=== PATIENT | male | born 1995 | race Caucasian/White ===

== ENCOUNTER 2017-09-10 11:16 | Emergency (ER) | payer OTHER ==
[2017-09-10 11:28] VITALS: RESP 16
--- NOTE | 2017-09-10 11:48 | XR ---
EXAMINATION TYPE: XR chest 2V DATE OF EXAM: 09/10/2017 COMPARISON: NONE HISTORY: Chest pain TECHNIQUE: Frontal and lateral views of the chest are obtained. FINDINGS: There is no focal air space opacity. No evidence for pneumothorax. No pleural effusion. The cardiac silhouette size is within normal limits. The osseous structures are grossly intact. IMPRESSION: 1. No acute cardiopulmonary process.
--- NOTE | 2017-09-10 12:22 | ED ---
General Adult HPI - General Chief complaint: Upper Respiratory Infection Stated complaint: flu like symptoms Time Seen by Provider: 09/10/17 12:02 Source: patient, family, RN notes reviewed Mode of arrival: ambulatory Limitations: no limitations - History of Present Illness Initial comments: Patient is a 22-year-old male who presents emergency room today with chief complaint cough congestion and body aches over the last 3 days. Patient states that was worried about possible flu. Patient does admit to a sore throat. Does admit that he's had a lot of rhinorrhea. Patient denies any sputum production with cough. Patient denies any other complaints or symptoms currently. Patient verónica is been using Tylenol ibuprofen at home. Patient denies shortness of breath, chest pain, abdominal pain, nausea or vomiting, numbness or tingling, dysuria or hematuria, constipation or diarrhea, headaches or visual changes, or any other complaints. - Related Data Home Medications Medication Instructions Recorded Confirmed No Known Home Medications [No 09/10/17 09/10/17 Known Home Medications] Allergies Allergy/AdvReac Type Severity Reaction Status Date / Time No Known Allergies Allergy Verified 09/10/17 12:20 Review of Systems ROS Statement: Those systems with pertinent positive or pertinent negative responses have been documented in the HPI. ROS Other: All systems not noted in ROS Statement are negative. Past Medical History Past Medical History: No Reported History History of Any Multi-Drug Resistant Organisms: None Reported Past Surgical History: No Surgical Hx Reported Past Psychological History: No Psychological Hx Reported, ADD/ADHD, Bipolar Smoking Status: Never smoker Past Alcohol Use History: None Reported Past Drug Use History: None Reported General Exam - General Exam Comments Initial Comments: General: The patient is awake and alert, in no distress, and does not appear acutely ill. Eye: Pupils are equal, round and reactive to light, extra-ocular movements are intact. No nystagmus. There is normal conjunctiva bilaterally. No signs of icterus. Ears, nose, mouth and throat: There are moist mucous membranes and no oral lesions. No redness to the posterior pharynx. Uvula midline. Patient swallows without any difficulty. No exudate. Neck: The neck is supple, there is no tenderness or JVD. Cardiovascular: There is a regular rate and rhythm. No murmur, rub or gallop is appreciated. Respiratory: Lungs are clear to auscultation, respirations are non-labored, breath sounds are equal. No wheezes, stridor, rales, or rhonchi. Musculoskeletal: Normal ROM, no tenderness. Strength 5/5. Sensation intact. Pulses equal bilaterally 2+. Neurological: A&O x 3. CN II-XII intact, There are no obvious motor or sensory deficits. Coordination appears grossly intact. Speech is normal. Skin: Skin is warm and dry and no rashes or lesions are noted. Psychiatric: Cooperative, appropriate mood & affect, normal judgment. Limitations: no limitations Course Vital Signs 09/10/17 11:26 Temperature 98.1 F Pulse Rate 77 Respiratory 16 Rate Blood Pressure 142/77 O2 Sat by Pulse 97 Oximetry Medical Decision Making - Medical Decision Making Patient is a 22-year-old male presented to the emergency room for fluids symptoms. While patient was in triage they did order a strep test and chest x- ray. He had these obtained prior to being seen. I did see the patient did discuss with him about flu swab. He is 34 days into his symptoms. Advised him that Tamiflu unlikely to be helpful at this time. He has declined flu swab. His strep test and chest x-ray are both negative. His vitals are stable. Advised patient that symptoms are consistent with influenza. Advised him to continue Tylenol Motrin for aches pains and fever. Advised to increase oral fluids. Patient does admit that he has a bad cough will be given cough medication. Advised follow-up the family doctor if there is no improvement over the next 34 days return here to the emergency room symptoms increase worsen. Patient and family member at bedside state understanding and agreement. - Lab Data Lab Results 09/10/17 Range/Units 11:30 Group A Strep Rapid Negative (Negative) Disposition Clinical Impression: Influenza Disposition: HOME SELF-CARE Condition: Good Instructions: Influenza (ED) Additional Instructions: Please use medication as discussed. Please follow-up with family doctor in the next 3-4 days of symptoms have not improved. Please return to emergency room if the symptoms increase or worsen or for any other concerns. Referrals: Hung Walden MD [Primary Care Provider] - 1-2 days Time of Disposition: 12:50
[2017-09-10 12:58] VITALS: BP 139/76; PULSE 93; TEMP 98.4
== END 2017-09-10 13:03 | disposition home or self-care (01) ==
LOC: EC 11:16
DX: J11.1 Influenza due to unidentified influenza virus with other respiratory manifestations (principal); Z79.1 Long term (current) use of non-steroidal anti-inflammatories (NSAID); Z79.891 Long term (current) use of opiate analgesic
CPT/HCPCS: 71046; 87081; 87430; 99283